=== PATIENT | male | born 1990 | race Caucasian/White ===

== ENCOUNTER 2021-05-26 11:50 | Emergency (ER) | payer SELFPAY ==
[~2021-05-26] VITALS: Ht 177.8 cm; Wt 100.0 kg
[~2021-05-26 11:50] MED LIST: NO HOME MEDS
[2021-05-26] MEDS ORDERED: FLEXERIL5 M1 PO (15:33)
[2021-05-26] MEDS ORDERED: IBUPROFEN600 MG PO (15:33)
[2021-05-26 15:55] VITALS: BP 122/79
== END 2021-05-26 15:55 | disposition home or self-care (01) | DRG 552 ==
LOC: ED 11:50
DX: M54.50 Low back pain, unspecified (principal); M54.6 Pain in thoracic spine; I10 Essential (primary) hypertension; F17.210 Nicotine dependence, cigarettes, uncomplicated

== ENCOUNTER 2021-12-07 06:50 | Emergency (ER) | payer MEDICAID ==
[2021-12-07] VITALS (11 sets, daily range): BP systolic 119–145; BP diastolic 73–100
[~2021-12-07] VITALS: Ht 177.8 cm; Wt 84.0 kg
[~2021-12-07 06:50] MED LIST changes: +FLEXERIL5 M1 PO; +IBUPROFEN600 MG PO
[2021-12-07 08:02] LABS: HEMATOCRIT 47.1 % (39.0-50.0); HEMOGLOBIN 16.6 g/dl (14.0-18.0); IMMATURE GRANULOCYTES 0.3 % (0.0-5.0); MEAN CELL VOLUME 83.8 fL CALC (80.0-100.0); MEAN CORPUSCULAR HGB 29.5 pG CALC (26.0-32.0); MEAN CORPUSCULAR HGB CONC 35.2 g/dL CAL (32.0-36.0); NEUT# 12.65 thou/uL (1.82-7.42); RED BLOOD COUNT 5.62 mill/uL (4.70-6.10); RED CELL DISTRI WIDTH 12.4 % (11.5-15.5)
[2021-12-07 08:31] LABS: ALBUMIN 4.5 g/dL (3.2-5.0); ALKALINE PHOSPHATASE 99 u/l (38-126); ANION GAP 13 (6-22 (CALC)); BILIRUBIN, TOTAL 1.2 mg/dL (0.0-1.4); BUN 14 mg/dL (9-20); BUN/CREATININE RATIO 17 (12-20 (CALC)); CARBON DIOXIDE 26 mmol/l (22-30); CHLORIDE 103 mmol/l (95-108); CREATININE 0.8 mg/dL (0.7-1.3); GFR FOR AFR.AMER. > 60 ML/MIN (>=60 (CALC)); GFR OTHER RACES > 60 ML/MIN (>=60 (CALC)); LIPASE 54 u/l (23-300); POTASSIUM 3.9 mmol/l (3.5-5.1); SGOT/AST 25 u/l (17-59); SODIUM 138 mmol/l (137-146); TOTAL PROTEIN 7.4 g/dL (6.3-8.2)
[2021-12-07 09:44] LABS: URINE BILIRUBIN - DIPSTICK NEGATIVE (NEGATIVE); URINE BLOOD DIPSTICK NEGATIVE (NEGATIVE); URINE COLOR YELLOW; URINE GLUCOSE - DIPSTICK NEGATIVE (NEGATIVE); URINE KETONE NEGATIVE (NEGATIVE); URINE LEUK ESTERASE NEGATIVE (NEGATIVE); URINE PH 7.5 (4.5-8.0); URINE PROTEIN - DIPSTICK NEGATIVE (NEG-TRACE); URINE UROBILINOGEN - DIPSTICK 0.2 E.U./dL (0.2)
[2021-12-07 09:51] LABS: URINE NITRITE - DIPSTICK NEGATIVE (Negative)
[2021-12-07] MEDS ORDERED: ZOFRAN4 MG/TAB PO (10:08)
[2021-12-07] MEDS ORDERED: METRONIDAZOLE500 MG PO (10:08)
[2021-12-07] MEDS ORDERED: CIPROFLOXACN500 MG PO (10:08)
== END 2021-12-07 10:40 | disposition home or self-care (01) ==
LOC: ED 06:50
PROVIDERS: Family Medicine
DX: R10.12 Left upper quadrant pain (principal); R10.11 Right upper quadrant pain; R11.2 Nausea with vomiting, unspecified; R19.7 Diarrhea, unspecified; R93.5 Abnormal findings on diagnostic imaging of other abdominal regions, including retroperitoneum; I10 Essential (primary) hypertension; F17.200 Nicotine dependence, unspecified, uncomplicated
CPT/HCPCS: Q9967

== ENCOUNTER 2022-12-13 16:35 | Emergency (ER) | payer MEDICAID ==
[~2022-12-13] VITALS: Ht 177.8 cm; Wt 84.0 kg
[~2022-12-13 16:35] MED LIST changes: +CIPROFLOXACN500 MG PO; +METRONIDAZOLE500 MG PO; +ZOFRAN4 MG/TAB PO
[2022-12-13 17:45] VITALS: BP 120/77
[2022-12-13] MEDS ORDERED: MOTRIN400 MG/TAB PO (17:49)
[2022-12-13] MEDS ORDERED: PREDNISONE50 MG PO (17:49)
== END 2022-12-13 18:00 | disposition home or self-care (01) ==
LOC: ED 16:35
DX: M54.6 Pain in thoracic spine (principal); I10 Essential (primary) hypertension; F17.200 Nicotine dependence, unspecified, uncomplicated

== ENCOUNTER 2023-12-04 18:55 | Emergency (ER) | payer SELFPAY ==
[~2023-12-04] VITALS: Ht 177.8 cm; Wt 80.0 kg
[~2023-12-04 18:55] MED LIST changes: +MOTRIN400 MG/TAB PO; +PREDNISONE50 MG PO; +PROTONIX40 M2 PO
[2023-12-04 19:02] VITALS: BP 136/97
[2023-12-04 19:15] VITALS: BP 126/92
[2023-12-04 19:30] VITALS: BP 131/87
[2023-12-04] MEDS ORDERED: ASPIRIN 81 MG/TAB PO ONE (19:30)
[2023-12-04] MEDS ORDERED: Pantoprazole Sodium 40 MG VIAL (Protonix) IV ONE (19:35)
[2023-12-04] MEDS ORDERED: LIDOCAINE VISCOUS 2% 15 ML UDC PO ONE (19:35)
[2023-12-04] MEDS ORDERED: SODIUM CHLORIDE 0.9% 1,000 ML IV ONE (19:35)
[2023-12-04] MEDS ORDERED: ALUM & MAG HYDROX-SIMETHICONE 30 ML PO ONE (19:35)
[2023-12-04 19:43] LABS: BASO% 0.8 % (0-3); EOS% 3.3 % (0-8); HEMATOCRIT 43.1 % (39.0-50.0); HEMOGLOBIN 14.4 g/dl (14.0-18.0); IMMATURE GRANULOCYTES 0.2 % (0.0-5.0); LYMPH% 23.8 % (15-41); MEAN CELL VOLUME 85.9 fL CALC (80.0-100.0); MEAN CORPUSCULAR HGB 28.7 pG CALC (26.0-32.0); MEAN CORPUSCULAR HGB CONC 33.4 g/dL CAL (32.0-36.0); MONO% 5.7 % (2-13); NEUT# 5.79 thou/uL (1.82-7.42); NEUT% 66.2 % (42-76); RED BLOOD COUNT 5.02 mill/uL (4.70-6.10); RED CELL DISTRI WIDTH 12.5 % (11.5-15.5)
[2023-12-04 19:45] VITALS: BP 120/79
[2023-12-04 20:03] LABS: ALBUMIN 4.6 g/dL (3.2-5.0); CREATININE 0.8 mg/dL (0.7-1.3); TOTAL PROTEIN 6.9 g/dL (6.3-8.2)
[2023-12-04 20:45] VITALS: BP 125/89
[2023-12-04] MEDS ORDERED: OMEPRAZOLE20 MG PO (20:49)
[2023-12-04 21:00] VITALS: BP 138/93
== END 2023-12-04 21:09 | disposition home or self-care (01) | DRG 392 ==
LOC: ED 18:55
PROVIDERS: Family Medicine
DX: K21.00 Gastro-esophageal reflux disease with esophagitis, without bleeding (principal); I10 Essential (primary) hypertension; F17.210 Nicotine dependence, cigarettes, uncomplicated
CPT/HCPCS: J2470